=== PATIENT | female | born 1955 | race Caucasian/White ===

== ENCOUNTER 2024-03-06 08:04 | Inpatient (IN) | payer MEDICARE, OTHER ==
[~2024-03-06] VITALS: Ht 170.2 cm; Wt 70.2 kg
[2024-03-06] VITALS (7 sets, daily range): BP systolic 104–120; BP diastolic 54–72; PULSE 73–94; RESP 15–20; TEMP 97.8–98.3; O2SAT 90–94
--- NOTE | 2024-03-06 09:45 | ED.PDOC ---
SOB-HPI HPI Comments 69 y.o female with PMH of COPD and HTN, presents to the ED for a chief complaint of SOB associated with green/brown sputum, abdominal pain, nausea, vomiting, and diarrhea that started 1 week ago. Patient reports for the past 3 days she has been laying in bed, decreased fluid intake due to SOB and now feels dehydrated and weak. Patient has no oxygen at home, presents to the ED with SPO2 reading 77% on room air, was placed on 4LNC and saturation increased to 90%. Patient denies any other symptoms, pain, recent illness exposure or travel outside of the country. 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 Family History Family History: Reviewed,noncontributory to illness Social History Smoker: Non-Smoker Alcohol: Denies ETOH Use Drugs: Denies Drug Use Lives In: Home Constitutional: denies: chills, diaphoresis, fatigue, fever, malaise, sweats, weakness, others EENTM: denies: blurred vision, double vision, ear bleeding, ear discharge, ear drainage, ear pain, ear ringing, eye pain, eye redness, hearing loss, mouth pain, mouth swelling, nasal discharge, nose bleeding, nose congestion, nose pain, photophobia, tearing, throat pain, throat swelling, voice changes, others Respiratory: reports: SOB at rest, shortness of breath, SOB with excertion; denies: cough, hemoptysis, orthopnea, stridor, wheezing, others Cardiovascular: denies: chest pain, dizzy spells, diaphoresis, Dyspnea on exertion, edema, irregular heart beat, left arm pain, lightheadedness, palpitations, PND, syncope, others Gastrointestinal: reports: abdominal pain, nausea, vomiting; denies: abdomen distended, blood streaked bowels, constipated, diarrhea, dysphagia, difficulty swallowing, hematemesis, melena, poor appetite, poor fluid intake, rectal bleeding, rectal pain, others Genitourinary: denies: abnormal vagina bleeding, burning, dyspareunia, dysuria, flank pain, frequency, hematuria, incontinence, pain, , vagina discharge, urgency, others Neurological: denies: dizziness, fainting, headache, left sided numbness, left sided weakness, numbness, paresthesia, pre-existing deficit, right sided numbness, right sided weakness, seizure, speech problems, tingling, tremors, weakness, others Musculoskeletal: denies: back pain, gout, joint pain, joint swelling, muscle pain, muscle stiffness, neck pain, others Integumetry: denies: bruises, change in color, change in hair/nails, dryness, laceration, lesions, lumps, rash, wounds, others Allergic/Immunocompromised: denies: Difficulty Healing, Frequent Infections, Hives, Itching, others Hematologic/Lymphatic: denies: anemia, blood clots, easy bleeding, easy bruising, swollen glands, others Endocrine: denies: excessive hunger, excessive sweating, excessive thirst, excessive urination, flushing, intolerance to cold, intolerance to heat, unexplained weight gain, unexplained weight loss, others Psychiatric: denies: anxiety, bipolar disorder, depression, hopeless, panic disorder, schizophrenia, sleepless, suicidal, others All Other Systems: Reviewed and Negative Physical Exam General Appearance: No Apparent Distress, Normal HEENT: Normal ENT Inspection, Pharynx Normal, TMs Normal Neck: Full Range of Motion, Non-Tender, Normal, Normal Inspection Respiratory: Chest Non-Tender, Lungs Clear, No Accessory Muscle Use, No Respiratory Distress, Normal Breath Sounds Cardiovascular: No Edema, No JVD, No Murmur, No Gallop, Normal Peripheral Pulses, Regular Rate/Rhythm Breast Exam: Deferred Gastrointestinal: No Organomegaly, Non Tender, No Pulsatile Mass, Normal Bowel Sounds, Soft Genitalia: Deferred Pelvic: Deferred Rectal: Deferred Extremities: No calf tenderness, Normal capillary refill, Normal inspection, Normal range of motion, Non-tender, No pedal edema Musculoskeletal : Apperance: Normal Neurologic: Alert, power crane operator II-XII nml as Tested, No Motor Deficits, Normal Affect, Normal Mood, No Sensory Deficits Cerebellar Function: Normal Reflexes: Normal Skin: Dry, Normal Color, Warm Lymphatic: No Adenopathy Was a procedure done? Was a procedure done?: No Differential Dx Differential Diagnosis: Asthma, Bronchitis, CHF, COPD, Pneumonia, Respiratory Distress, URI X-Ray, Labs, Meds, VS Vital Signs Date Time Temp Pulse Resp B/P (MAP) Pulse Ox O2 Delivery O2 Flow Rate FiO2 03/06/24 11:11 97.8 74 16 90/54 (66) 91 97.8 03/06/24 11:11 74 16 91 Nasal Cannula* 4 36 03/06/24 08:50 98.0 86 24 117/67 (84) 77 03/06/24 08:49 24 96 Nasal Cannula* 4 36 Lab Test 03/06/24 12:00 03/06/24 10:20 Range/Units Troponin I High Sensitivity Pending 38 *H </=34 ng/L White Blood Count 17.3 H 4.4-10.8 10^3/uL Red Blood Count 4.97 4.0-5.20 10^6/uL Hemoglobin 15.2 12.2-16.2 g/dL Hematocrit 44.9 36.0-46.0 % Mean Corpuscular Volume 90.4 80.0-100.0 fL Mean Corpuscular Hemoglobin 30.7 28.0-32.0 pg Mean Corpuscular Hemoglobin Concent 33.9 32.0-36.0 g/dL Red Cell Distribution Width 12.7 11.8-14.3 % Platelet Count 259 140-450 10^3/uL Mean Platelet Volume 7.9 6.9-10.8 fL Neutrophils (%) (Auto) 90.4 H 37.0-80.0 % Lymphocytes (%) (Auto) 4.2 L 10.0-50.0 % Monocytes (%) (Auto) 5.3 0.0-12.0 % Eosinophils (%) (Auto) 0.0 0.0-7.0 % Basophils (%) (Auto) 0.1 0.0-2.0 % Neutrophils # (Auto) 15.7 H 1.6-8.6 10 ^3/uL Lymphocytes # (Auto) 0.7 0.4-5.4 10 ^3/uL Monocytes # (Auto) 0.9 0-1.3 10 ^3/uL Eosinophils # (Auto) 0 0-0.8 10 ^3/uL Basophils # (Auto) 0 0-0.2 10 ^3/uL Nucleated Red Blood Cells 0.1 % Prothrombin Time 11.6 9.3-11.8 sec Prothrombin Time INR 1.10 0.9-1.15 Activated Partial Thromboplast Time 31.3 24.5-34.5 SEC D-Dimer, Quantitative 1.29 H 0.0-0.49 mg/L FEU Sodium Level 137 136-145 mmol/L Potassium Level 2.8 L 3.5-5.1 mmol/L Chloride Level 97 L 98-107 mmol/L Carbon Dioxide Level 23 20-31 mmol/L Anion Gap 17 H 5-15 Blood Urea Nitrogen 20 9-23 mg/dL Creatinine 1.35 H 0.550-1.02 mg/dL Glomerular Filtration Rate Calc 43 >90 mL/min BUN/Creatinine Ratio 14.8 10.0-20.0 Serum Glucose 106 74-106 mg/dL Calcium Level 9.7 8.7-10.4 mg/dL Magnesium Level 2.1 1.6-2.6 mg/dL Total Bilirubin 1.1 H 0.2-1.0 mg/dL Aspartate Amino Transferase (AST) 38 13-40 U/L Alanine Aminotransferase (ALT) 16 7-40 U/L Alkaline Phosphatase 129 H 46-116 U/L B-Type Natriuretic Peptide 170.50 0-100 pg/mL Total Protein 7.3 5.7-8.2 g/dL Albumin 4.4 3.2-4.8 g/dL Current Medications Medications (Trade) Dose Ordered Sig/Liz Route Start Time Stop Time Status Last Admin Sodium Chloride 1,000 ml @ 1,000 mls/hr Q1H ONCE IV 03/06/24 09:30 03/06/24 10:29 DC 03/06/24 10:50 Ondansetron HCl (Zofran) 4 mg ONCE ONCE IV 03/06/24 09:30 03/06/24 09:32 DC 03/06/24 10:57 Time of 1ST Reevaluation: 09:30 Reevaluation 1ST: Unchanged Patient Education/Counseling: Diagnosis, Treatment, Prognosis Family Education/Counseling: No Family Present Additional Information The following tests were ordered, and results were reviewed by me: LAB, CXR, O2 I reviewed and agreed with the following test results read by other providers: CXR I discussed treatment and results with medical personnel and patient Departure 1 Departure Time of Disposition: 12:50 Impression: Primary Impression: Dyspnea Additional Impressions: Hypoxia Leukocytosis Hypokalemia Disposition: ADMITTED INPATIENT Admit to: Tele Condition: Guarded Critical Care Note Critical Care Time?: No Stability Stability form required: No I personally scribed for AUSTIN VICTOR MD ([email or web address]) on 03/06/24 at 09:45. Electronically submitted by Rachel Belle ([facility]). AUSTIN VICTOR MD Mar 06, 2024 09:45
[2024-03-06] MEDS: SODIUM CHLORIDE 0.9% 1,000 ML IV ONE (10:50)
[2024-03-06] MEDS: ONDANSETRON HCL 4 MG/2 ML VIAL IV ONE (10:57)
[2024-03-06 10:58] LABS: Basophils # (auto) 0 10 ^3/uL (0-0.2); Basophils % (auto) 0.1 % (0.0-2.0); Eosinophils # (auto) 0 10 ^3/uL (0-0.8); Hematocrit 44.9 % (36.0-46.0); Hemoglobin 15.2 g/dL (12.2-16.2); Lymphocytes # (auto) 0.7 10 ^3/uL (0.4-5.4); Lymphocytes % (auto) 4.2 % (10.0-50.0); Mean Corpuscular Hemoglobin 30.7 pg (28.0-32.0); Mean Corpuscular Hgb Conc. 33.9 g/dL (32.0-36.0); Mean Corpuscular Volume 90.4 fL (80.0-100.0); Monocytes # (auto) 0.9 10 ^3/uL (0-1.3); Monocytes % (auto) 5.3 % (0.0-12.0); Neutrophils # (auto) 15.7 10 ^3/uL (1.6-8.6); Neutrophils % (auto) 90.4 % (37.0-80.0); Nucleated Red Blood Cells % 0.1 %; Platelet Count (auto) 259 10^3/uL (140-450); Red Blood Cells 4.97 10^6/uL (4.0-5.20); Red Cell Distribution Width 12.7 % (11.8-14.3); White Blood Cell 17.3 10^3/uL (4.4-10.8)
[2024-03-06 11:13] LABS: Alanine Aminotransferase 16 U/L (7-40); Albumin 4.4 g/dL (3.2-4.8); Anion Gap 17 (5-15); Aspartate Aminotransferase 38 U/L (13-40); BUN/Creatinine Ratio 14.8 (10.0-20.0); Blood Urea Nitrogen 20 mg/dL (9-23); Calcium 9.7 mg/dL (8.7-10.4); Carbon Dioxide 23 mmol/L (20-31); Glucose 106 mg/dL (74-106); Magnesium 2.1 mg/dL (1.6-2.6); Sodium 137 mmol/L (136-145)
[2024-03-06 11:14] LABS: Bilirubin, Total 1.1 mg/dL (0.2-1.0); Total Protein 7.3 g/dL (5.7-8.2)
[2024-03-06 11:15] LABS: INR 1.1 (0.9-1.15); Partial Thromboplastin Time 31.3 SEC (24.5-34.5); Prothrombin Time 11.6 sec (9.3-11.8)
[2024-03-06 11:21] LABS: Alkaline Phosphatase 129 U/L (46-116); Chloride 97 mmol/L (98-107); Potassium 2.8 mmol/L (3.5-5.1)
[2024-03-06] MEDS ORDERED: POTASSIUM PHOSPHATE 44 MEQ in D5W 5% 250 ML IV ONE (13:00)
[2024-03-06] MEDS: POTASSIUM EFFERVESENT TAB 25 MEQ PO ONE (13:47)
--- NOTE | 2024-03-06 14:28 | ECG ---
[facility], [place] Test Date: 2024-03-06 Test Time: 08:40:45 Pat Name: IMTIAZ SALAZAR Department: ER Room: Gender: F Icer Hand: JOSE : 1955 Requested By: AUSTIN VICTOR Order Number: [id number] Reading MD: Mruphy Rodas Measurements Intervals Angie Rate: 77 P: 59 NC: 152 QRS: 5 QRSD: 99 T: 74 QT: 470 QTc: 533 Interpretive Statements Sinus rhythm Atrial premature complex Left atrial enlargement Anterolateral infarct, age indeterminate Prolonged QT interval Electronically Signed On 03-06-2024 15:45:12 PST by Murphy Rodas Please click the below link to view image of tracing.
[2024-03-06] MEDS ORDERED: IPRATROPIUM BROM 0.5 MG/2.5ML INH SOL NEB PRN (14:30)
[2024-03-06] MEDS ORDERED: ALBUTEROL SULF 2.5 MG/0.5ML(0.5%) NEB SOLN NEB PRN (14:30)
[2024-03-06] MEDS ORDERED: AMLO1TAB23 PO (14:43)
[2024-03-06] MEDS ORDERED: ATOR20TA50 PO (14:43)
[2024-03-06] MEDS ORDERED: TRAZ-228 PO (14:43)
[2024-03-06] MEDS ORDERED: ARIP1TAB63 PO (14:43)
[2024-03-06] MEDS ORDERED: LISI10TA34 PO (14:43)
[2024-03-06] MEDS ORDERED: METO1TAB9 PO (14:43)
[2024-03-06] MEDS ORDERED: VENL1TAB99 PO (14:43)
[2024-03-06] MEDS: IOHEXOL 350 MG/ML 100ML IJ ONE (14:46)
--- NOTE | 2024-03-06 15:07 | DVH ---
PROCEDURE: CT CT ANGIO CHEST CONTRAST 03/06/2024 02:35 PM INDICATION: r/o pe COMPARISON: Chest radiograph dated 03/06/2024 TECHNIQUE: Coverage: Thorax IV contrast: Administered Phases: Arterial Multiplanar 3-D Maximum Intensity Projection images (MIP) reconstructions were created by the technkhloe barrios in the coronal and sagittal planes as part of the CT angiography protocol. Adverse events: None Medication laboratory values were reviewed to verify the patient meets criteria for contrast administ ration. All CT scans at this medical facility are performed using dose modulation techniques as appropriate t o a performed exam including the following: Automated exposure control was utilized; adjustment of th e MA and/or KV according to patient size; and use of iterative reconstruction technique. Radiation dose: CTDIvol 29 mGy, DLP 487 mGy*cm. FINDINGS: Cardiovascular: No evidence of acute or chronic pulmonary emboli identified. Prominent pulmonary serafin ry suggestive of underlying pulmonary arterial hypertension. Fusiform aneurysm of the ascending aorta measuring 4 cm in mid ascending aorta. Scattered soft and calcified plaques noted. The heart is nor mal in size. Lungs: Multifocal patchy opacities are noted in the bilateral upper, lower and right middle lobes mor e prominent in the lower lobes. Numerous subcentimeter lucencies are seen in the bilateral lungs. No pleural effusion. No pneumothorax. The airways are patent. Thyroid: Unremarkable Esophagus: Unremarkable. Lymphatics: Several mediastinal lymph nodes are seen measuring up to 2.2 x 1 cm in the subcarinal reg ion. Mild bilateral hilar lymphadenopathy. Bones/soft tissues: No acute abnormality. Mild thoracic levoscoliosis and multilevel degenerative dis c disease. Upper abdomen: No acute abnormality. Other: None. IMPRESSION: 1. No pulmonary emboli. Suggestion of pulmonary arterial hypertension prominent and related to under lying COPD. 2. Bilateral multifocal pneumonia. 3. Mild fusiform aneurysm of the ascending aorta with maximum transverse diameter 4 cm. 4. Moderate centrilobular and paraseptal emphysema.
[2024-03-06] MEDS: SODIUM CHLORIDE 0.9% 1,000 ML IV SCH (15:08)
[2024-03-06] MEDS: cefTRIAXone 1GM/50ML D5W 50 ML IV ONE (15:38)
--- NOTE | 2024-03-06 15:52 | DVHHP2 ---
History of Present Illness Reason for Visit: Shortness of breath, nausea, vomiting, and abdominal pain x4 days History of Present Illness Griselda Steinberg is a 69-year-old female with past medical history of hypertension and COPD who presents to the ED today with shortness of breath with brown productive sputum, nausea, vomiting, abdominal pain x4 days. Patient states that her nieces are sick with a cold and got her ill. She states that when she was home her saturation was 84% on room air. She states that she does not use home oxygen. She does state that she is compliant with all her medications and she does use albuterol as needed for shortness of breath. Patient denies any fevers, chills, chest pain, back pain, headache, lightheadedness, and dizziness. Cardiovascular: HTN Pulmonary: COPD Past Medical History DJD Past Surgical History: Appendectomy, Past Surgical History Neck surgery with plate in place Family History: DM Family History Mom Smoke: No ALCOHOL: none Drugs: None Lives: with Family Domestic Violence: Neg Review of Systems Constitutional: No: Fever, Chills, Sweats, Weakness, Malaise, Other Eyes: No: Pain, Vision change, Conjunctivae inflammation, Eyelid inflammation, Other, Redness ENT: No: Ear pain, Ear discharge, Nose pain, Nose discharge, Nose congestion, Mouth pain, Mouth swelling, Throat pain, Throat swelling, Other Respiratory: Shortness of breath; No: Cough, Dry, SOB with excertion, Wheezing, Hemoptysis, Pleuritic Pain, Sputum, Wheezing, Other Cardiovascular: No: Chest Pain, Palpitations, Orthopnea, Paroxysmal Noc. Dyspnea, Edema, Lt Headedness, Other Gastrointestinal: Nausea, Vomiting, Abdominal Pain; No: Diarrhea, Constipation, Melena, Hematochezia, Other Genitourinary: No Dysuria, No Frequency, No Incontinence, No Hematuria, No Retention, No Other Musculoskeletal: No: other, neck pain, shoulder pain, arm pain, back pain, hand pain, leg pain, foot pain Skin: No: Rash, Lesions, Jaundice, Bruising, Other Neurological: No: Weakness, Numbness, Incoordination, Change in speech, Confusion, Seizures, Other Allergies: Coded Allergies: Codeine (Verified Allergy, Mild, 03/07/24) Medications Current Medications Medications Dose Ordered Sig/Liz Route Start Time Stop Time Status Last Admin Dose Admin Ceftriaxone Sodium 50 ml @ 100 mls/hr DAILY@09 IV 03/07/24 09:00 Albuterol 2.5 mg Q6HWA [facility] 03/06/24 18:00 Albuterol 2.5 mg Q4HPRN PRN [facility] 03/06/24 14:30 Ipratropium [place] 0.5 mg Q6HWA [facility] 03/06/24 18:00 Ipratropium [place] 0.5 mg Q4HPRN PRN [facility] 03/06/24 14:30 Sodium Chloride 1,000 ml @ 100 mls/hr Q10H IV 03/06/24 14:30 03/06/24 15:08 100 MLS/HR Budesonide 0.5 mg BID [facility] 03/06/24 22:00 Exam Vital Signs Vital Signs Date Time Temp Pulse Resp B/P (MAP) Pulse Ox O2 Delivery O2 Flow Rate FiO2 03/06/24 15:19 97.8 86 20 109/54 92 6.0 44 97.8 03/06/24 14:27 Nasal Cannula General Appearance: Alert, Oriented X3, Cooperative, No acute distress HEENT: Atraumatic, PERRLA, EOMI, Mucous membr. moist/pink Respiratory: Normal air movement Cardiovascular: Regular rate, Normal S1, Normal S2, No murmurs Abdominal: Normal bowel sounds, Soft, No tenderness, No hepatospenomegaly, No masses Extremities: No clubbing, No cyanosis, No edema, Normal pulses, No tenderness/swelling Skin: No rashes, No breakdown, No significant lesion Neuro: Normal gait, Normal speech, Strength at 5/5 X4 ext, Normal tone, Sensation intact Psych/Mental Status: Mental status NL, Mood NL Labs/Xrays Labs Test 03/06/24 13:59 03/06/24 10:20 Range/Units Troponin I High Sensitivity 32 </=34 ng/L White Blood Count 17.3 H 4.4-10.8 10^3/uL Red Blood Count 4.97 4.0-5.20 10^6/uL Hemoglobin 15.2 12.2-16.2 g/dL Hematocrit 44.9 36.0-46.0 % Mean Corpuscular Volume 90.4 80.0-100.0 fL Mean Corpuscular Hemoglobin 30.7 28.0-32.0 pg Mean Corpuscular Hemoglobin Concent 33.9 32.0-36.0 g/dL Red Cell Distribution Width 12.7 11.8-14.3 % Platelet Count 259 140-450 10^3/uL Mean Platelet Volume 7.9 6.9-10.8 fL Neutrophils (%) (Auto) 90.4 H 37.0-80.0 % Lymphocytes (%) (Auto) 4.2 L 10.0-50.0 % Monocytes (%) (Auto) 5.3 0.0-12.0 % Eosinophils (%) (Auto) 0.0 0.0-7.0 % Basophils (%) (Auto) 0.1 0.0-2.0 % Neutrophils # (Auto) 15.7 H 1.6-8.6 10 ^3/uL Lymphocytes # (Auto) 0.7 0.4-5.4 10 ^3/uL Monocytes # (Auto) 0.9 0-1.3 10 ^3/uL Eosinophils # (Auto) 0 0-0.8 10 ^3/uL Basophils # (Auto) 0 0-0.2 10 ^3/uL Nucleated Red Blood Cells 0.1 % Prothrombin Time 11.6 9.3-11.8 sec Prothrombin Time INR 1.10 0.9-1.15 Activated Partial Thromboplast Time 31.3 24.5-34.5 SEC D-Dimer, Quantitative 1.29 H 0.0-0.49 mg/L FEU Sodium Level 137 136-145 mmol/L Potassium Level 2.8 L 3.5-5.1 mmol/L Chloride Level 97 L 98-107 mmol/L Carbon Dioxide Level 23 20-31 mmol/L Anion Gap 17 H 5-15 Blood Urea Nitrogen 20 9-23 mg/dL Creatinine 1.35 H 0.550-1.02 mg/dL Glomerular Filtration Rate Calc 43 >90 mL/min BUN/Creatinine Ratio 14.8 10.0-20.0 Serum Glucose 106 74-106 mg/dL Calcium Level 9.7 8.7-10.4 mg/dL Magnesium Level 2.1 1.6-2.6 mg/dL Total Bilirubin 1.1 H 0.2-1.0 mg/dL Aspartate Amino Transferase (AST) 38 13-40 U/L Alanine Aminotransferase (ALT) 16 7-40 U/L Alkaline Phosphatase 129 H 46-116 U/L B-Type Natriuretic Peptide 170.50 0-100 pg/mL Total Protein 7.3 5.7-8.2 g/dL Albumin 4.4 3.2-4.8 g/dL PROCEDURE: CT CT ANGIO CHEST CONTRAST 03/06/2024 02:35 PM INDICATION: r/o pe COMPARISON: Chest radiograph dated 03/06/2024 TECHNIQUE: Coverage: Thorax IV contrast: Administered Phases: Arterial Multiplanar 3-D Maximum Intensity Projection images (MIP) reconstructions were created by the technologist in the coronal and sagittal planes as part of the CT angiography protocol. Adverse events: None Medication laboratory values were reviewed to verify the patient meets criteria for contrast administration. All CT scans at this medical facility are performed using dose modulation techniques as appropriate to a performed exam including the following: Automated exposure control was utilized; adjustment of the MA and/or KV according to patient size; and use of iterative reconstruction technique. Radiation dose: CTDIvol 29 mGy, DLP 487 mGy*cm. FINDINGS: Cardiovascular: No evidence of acute or chronic pulmonary emboli identified. Prominent pulmonary artery suggestive of underlying pulmonary arterial hypertension. Fusiform aneurysm of the ascending aorta measuring 4 cm in mid ascending aorta. Scattered soft and calcified plaques noted. The heart is normal in size. Lungs: Multifocal patchy opacities are noted in the bilateral upper, lower and right middle lobes more prominent in the lower lobes. Numerous subcentimeter mary encies are seen in the bilateral lungs. No pleural effusion. No pneumothorax. The airways are patent. Thyroid: Unremarkable Esophagus: Unremarkable. Lymphatics: Several mediastinal lymph nodes are seen measuring up to 2.2 x 1 cm in the subcarinal region. Mild bilateral hilar lymphadenopathy. Bones/soft tissues: No acute abnormality. Mild thoracic levoscoliosis and multilevel degenerative disc disease. Upper abdomen: No acute abnormality. Other: None. IMPRESSION: 1. No pulmonary emboli. Suggestion of pulmonary arterial hypertension prominent and related to underlying COPD. 2. Bilateral multifocal pneumonia. 3. Mild fusiform aneurysm of the ascending aorta with maximum transverse diameter 4 cm. 4. Moderate centrilobular and paraseptal emphysema. Assessment/Plan Assessment/Plan Assessment/Plan: Leukocytosis likely 2nd to PNA Acute on chronic COPD exacerbation likely 2nd to PNA MAYANK IV Abx labs ekg ua supp O2 cxr noted trop downtrending Elevated D-dimer Antiemetics Pain management IV fluids given in ER mag pt/ptt bnp cta chest noted Hypokalemia replete lytes Mild fusiform aneurysm of the ascending aorta with maximum transverse diameter 4 cm. Monitor FEN/PPX diet IVf DVT ppx - lovenox PUD ppx - protonix Admit patient to Med surg Discussed plan of care with patient and nurse Home medications reconciled Plan discussed with: Patient My Orders Orders - USMAN KAM Procedure Category Date Status Time Ct Angio Chest CT 03/06/24 Resulted Contrast 14:19 Ceftriaxone 1gm/50ml PHA 03/07/24 In Process D5w (Rocephin) 09:00 Albuterol Medneb PHA 03/06/24 In Process (Ventolin Medneb) 18:00 Albuterol Medneb PHA 03/06/24 In Process (Ventolin Medneb) 14:30 Ipratropium Medneb PHA 03/06/24 In Process (Atrovent Medneb) 18:00 Ipratropium Medneb PHA 03/06/24 In Process (Atrovent Medneb) 14:30 Sodium Chloride 0.9% PHA 03/06/24 In Process 14:30 Budesonide PHA 03/06/24 In Process (Inhalation) 22:00 Date of Service: Mar 06, 2024 Billing Provider: USMAN KAM Common Visit Codes: [id number] INP/OBS CARE (HIGH) USMAN KAM Mar 06, 2024 15:52
[2024-03-06] MEDS ORDERED: HYDROcodone-ACET 5/325MG TAB PO PRN (16:00)
[2024-03-06] MEDS ORDERED: MORPHINE SULFATE INJ 2 MG/ml SYRG IV PRN (16:00)
[2024-03-06] MEDS ORDERED: ONDANSETRON HCL 4 MG/2 ML VIAL IV PRN (16:00)
[2024-03-06] MEDS: POTASSIUM PHOSPHATE IV ONE (16:18)
[2024-03-06] MEDS: SODIUM CHL 0.9% IV ONE (16:18)
[2024-03-06] MEDS: IPRATROPIUM BROM 0.5 MG/2.5ML INH SOL NEB SCH (19:05)
[2024-03-06] MEDS: ALBUTEROL SULF 2.5 MG/0.5ML(0.5%) NEB SOLN NEB SCH (19:05)
[2024-03-06] MEDS: BUDESONIDE (INHALATION) 0.5 MG/2 ML NEB NEB SCH (19:05)
[2024-03-06] MEDS ORDERED: FLUT1AER17 INH (20:40)
[2024-03-07] VITALS (14 sets, daily range): BP systolic 102–138; BP diastolic 59–85; PULSE 80–111; RESP 14–19; TEMP 97.7–98.2; O2SAT 88–98
[2024-03-07 05:21] LABS: Basophils # (auto) 0 10 ^3/uL (0-0.2); Basophils % (auto) 0.2 % (0.0-2.0); Eosinophils # (auto) 0 10 ^3/uL (0-0.8); Hematocrit 36.8 % (36.0-46.0); Hemoglobin 12.6 g/dL (12.2-16.2); Lymphocytes # (auto) 0.8 10 ^3/uL (0.4-5.4); Lymphocytes % (auto) 7.6 % (10.0-50.0); Mean Corpuscular Hemoglobin 30.2 pg (28.0-32.0); Mean Corpuscular Hgb Conc. 34.4 g/dL (32.0-36.0); Mean Corpuscular Volume 87.9 fL (80.0-100.0); Monocytes # (auto) 0.5 10 ^3/uL (0-1.3); Monocytes % (auto) 5.3 % (0.0-12.0); Neutrophils # (auto) 8.8 10 ^3/uL (1.6-8.6); Neutrophils % (auto) 86.9 % (37.0-80.0); Nucleated Red Blood Cells % 0.1 %; Platelet Count (auto) 201 10^3/uL (140-450); Red Blood Cells 4.18 10^6/uL (4.0-5.20); Red Cell Distribution Width 12.8 % (11.8-14.3); White Blood Cell 10.1 10^3/uL (4.4-10.8)
[2024-03-07 05:40] LABS: Alanine Aminotransferase 14 U/L (7-40); Albumin 3.7 g/dL (3.2-4.8); Alkaline Phosphatase 105 U/L (46-116); Anion Gap 9 (5-15); BUN/Creatinine Ratio 22.8 (10.0-20.0); Blood Urea Nitrogen 18 mg/dL (9-23); Carbon Dioxide 30 mmol/L (20-31); Chloride 101 mmol/L (98-107); Sodium 140 mmol/L (136-145)
[2024-03-07 05:41] LABS: Bilirubin, Total 0.6 mg/dL (0.2-1.0); Total Protein 5.9 g/dL (5.7-8.2)
[2024-03-07 06:02] LABS: Glucose 108 mg/dL (74-106); Potassium 2.7 mmol/L (3.5-5.1)
[2024-03-07 06:07] LABS: Aspartate Aminotransferase 27 U/L (13-40)
[2024-03-07] MEDS: SODIUM CHLORIDE 0.9% 1,000 ML IV SCH (06:09)
[2024-03-07] MEDS: ACETAMINOPHEN 325 MG TAB PO PRN (06:26)
[2024-03-07] MEDS: cefTRIAXone 1GM/50ML D5W 50 ML IV SCH (08:37)
[2024-03-07] MEDS: ENOXAPARIN SOD 40 MG/0.4 ML SYRINGE SC SCH (08:38)
--- NOTE | 2024-03-07 09:56 | DVH ---
CHEST RADIOGRAPH Indication: pna Technique: Single frontal view of the chest was obtained Comparison: XY CHEST PORTABLE on DOS: 03/06/24 FINDINGS: Lines and Tubes: None Lungs: Bilateral opacities. Pleura: No effusion. No pneumothorax. Cardiomediastinal contours: Unremarkable Bones: No acute osseous abnormality. ACDF. IMPRESSION: 1. Bilateral opacities which may represent multifocal pneumonia.
--- NOTE | 2024-03-07 11:38 | DVHPN2 ---
Reviewed: Care Plan, H&P, Labs, Medications, Previous Orders, Radiology Changes from previous H/P or p: No Changes Eyes: No Pain, No Vision change, No Conjunctivae inflammation, No Eyelid inflammation, No Other, No Redness ENT: No Ear pain, No Ear discharge, No Nose pain, No Nose discharge, No Nose congestion, No Mouth pain, No Mouth swelling, No Throat pain, No Throat swelling, No Other Cardiovascular: No Chest Pain, No Palpitations, No Orthopnea, No Paroxysmal Noc. Dyspnea, No Edema, No Lt Headedness, No Other Respiratory: No Cough, No Dry; Shortness of breath; No SOB with excertion, No Wheezing, No Hemoptysis, No Pleuritic Pain, No Sputum, No Other Gastrointestinal: Nausea, Vomiting, Abdominal Pain; No Diarrhea, No Constipation, No Melena, No Hematochezia, No Other Genitourinary: No Dysuria, No Frequency, No Incontinence, No Hematuria, No Retention, No Other Musculoskeletal: No other, No neck pain, No shoulder pain, No arm pain, No back pain, No hand pain, No leg pain, No foot pain Skin: No Rash, No Lesions, No Jaundice, No Bruising, No Other Objective Vitals Vital Signs Date Time Temp Pulse Resp B/P (MAP) Pulse Ox O2 Delivery O2 Flow Rate FiO2 03/07/24 11:25 80 14 98 03/07/24 11:18 Nasal Cannula 4.0 03/07/24 11:18 36 03/07/24 08:30 98.1 128/64 (85) 98.1 Intake/Output Intake and Output 03/07/24 07:00 Intake Total 450 ml Balance 450 ml Intake Oral 400 ml IV Total 50 ml # Voids 2 Medications Current Medications Medications Dose Ordered Sig/Liz Route Start Time Stop Time Status Last Admin Dose Admin Ceftriaxone Sodium 50 ml @ 100 mls/hr DAILY@09 IV 03/07/24 09:00 03/07/24 08:37 100 MLS/HR Albuterol 2.5 mg Q6HWA [facility] 03/06/24 18:00 03/07/24 11:18 2.5 MG Albuterol 2.5 mg Q4HPRN PRN [facility] 03/06/24 14:30 Ipratropium [place] 0.5 mg Q6HWA [facility] 03/06/24 18:00 03/07/24 11:18 0.5 MG Ipratropium [place] 0.5 mg Q4HPRN PRN NEB 03/06/24 14:30 Budesonide 0.5 mg BID NEB 03/06/24 22:00 03/07/24 06:36 0.5 MG Sodium Chloride 1,000 ml @ 70 mls/hr [id number] IV 03/06/24 16:00 03/07/24 06:09 70 MLS/HR Acetaminophen/ Hydrocodone Bitart 1 tab Q4HP PRN PO 03/06/24 16:00 Ondansetron HCl 4 mg Q4HP PRN IV 03/06/24 16:00 Enoxaparin Sodium 40 mg DAILY SC 03/07/24 10:00 03/07/24 08:38 40 MG Acetaminophen 650 mg Q6HP PRN PO 03/06/24 16:00 03/07/24 06:26 650 MG Morphine Sulfate 2 mg Q4HPRN PRN IV 03/06/24 16:00 Laboratory Results Laboratory Tests 03/07/24 05:02 Chemistry Test 03/07/24 05:02 Albumin 3.7 g/dL (3.2-4.8) Calcium Level 9.0 mg/dL (8.7-10.4) Total Protein 5.9 g/dL (5.7-8.2) LFT Test 03/07/24 05:02 Alanine Aminotransferase (ALT) 14 U/L (7-40) Alkaline Phosphatase 105 U/L (46-116) Aspartate Amino Transferase (AST) 27 U/L (13-40) Total Bilirubin 0.6 mg/dL (0.2-1.0) Labs and/or images reviewed: Labs reviewed by me, Image(s) reviewed by me Assessment/Plan Assessment/Plan Hypoxic respiratory failure: Oxygen by nasal cannula Septic shock secondary to pneumonia with the elevated white count altered mental status and hypoxia Acute community-acquired multifocal pneumonia: Blood cultures sputum cultures, Rocephin azithromycin albuterol Atrovent Solu-Medrol Acute COPD exacerbation Hypertension DJD History of neck surgery Elevated D-dimer 1.29 PE ruled out Will check Tammy test, rapid influenza test Acute hypokalemia potassium 2.8: Replace potassium Time spent 65 minutes Patient is full code Poor prognosis Advanced care planning time 20 minutes Patient is from [facility] and visiting her daughter Linette [phone] in the [facility] who is at the bedside now. Plan discussed with: Patient My Orders Orders - NOEMI RILEY MD Procedure Category Date Status Time Urinalysis LAB 03/07/24 Logged 11:33 Urine Bacterial BROCK 03/07/24 Logged Culture 11:33 Blood Culture BROCK 03/07/24 Logged 11:33 Rapid Influenza A&B LAB 03/07/24 Logged 11:34 Covid19 Antigen [place] LAB 03/07/24 Logged Date of Service: Mar 07, 2024 Billing Provider: NOEMI RILEY MD Common Visit Codes: [id number] CARE 30-74 MIN NOEMI RILEY MD Mar 07, 2024 11:38
[2024-03-07] MEDS: POTASSIUM CHL 20 Meq TABLET PO ONE (11:58)
[2024-03-07] MEDS: AZITHROMYCIN 500MG/ 250ML 250 ML IV ONE (11:58)
[2024-03-07] MEDS: AZITHROMYCIN 250 MG TAB PO ONE (13:59)
--- NOTE | 2024-03-07 14:13 | MEDREC ---
[facility] ASP Intervention Section I [facility] ASP Intervention: Review courses of therapy (PLEASE CONSIDER SWITCHING AZITHROMYCIN TO DOXYCYCLINE DUE TO QTc > 500 ) NAMRATA BLANCAS Mar 07, 2024 14:13
[2024-03-07 15:06] LABS: COVID19 ANTIGEN SOFIA FIA NEGATIVE (NEGATIVE)
[2024-03-07 15:07] LABS: Rapid Influenza A Negative (Negative); Rapid Influenza B Negative (Negative)
[2024-03-07] MEDS: VENLAFAXINE HCL 37.5MG TABLET PO SCH (22:16)
[2024-03-07] MEDS: POTASSIUM CHL 20 Meq TABLET PO SCH (22:17)
[2024-03-08] VITALS (15 sets, daily range): BP systolic 129–156; BP diastolic 59–78; PULSE 65–99; RESP 1–20; TEMP 98–99.6; O2SAT 65–98
[2024-03-08 03:13] LABS: Urine Bacteria None Seen /hpf (None Seen)
[2024-03-08 04:37] LABS: Urine Blood Negative /uL (Negative); Urine Budding Yeast OCCASIONAL /hpf (None Seen); Urine Clarity Clear (Clear); Urine Color Light-Yellow (Yellow); Urine Protein, UAD TRACE (Negative); Urine Specific Gravity 1.012 (1.001-1.035); Urine Squamous Epithelial Cell FEW /hpf (<5); Urine Urobilinogen Normal (Negative); Urine WBC 3 /hpf (0 - 5)
[2024-03-08] MEDS: AZITHROMYCIN 250 MG TAB PO SCH (08:37)
[2024-03-08] MEDS ORDERED: AZITHROMYCIN 500MG/ 250ML 250 ML IV SCH (10:00)
--- NOTE | 2024-03-08 11:42 | DVHPN2 ---
Reviewed: Care Plan, H&P, Labs, Medications, Previous Orders, Radiology Changes from previous H/P or p: No Changes Eyes: No Pain, No Vision change, No Conjunctivae inflammation, No Eyelid inflammation, No Other, No Redness ENT: No Ear pain, No Ear discharge, No Nose pain, No Nose discharge, No Nose congestion, No Mouth pain, No Mouth swelling, No Throat pain, No Throat swelling, No Other Cardiovascular: No Chest Pain, No Palpitations, No Orthopnea, No Paroxysmal Noc. Dyspnea, No Edema, No Lt Headedness, No Other Respiratory: No Cough, No Dry; Shortness of breath; No SOB with excertion, No Wheezing, No Hemoptysis, No Pleuritic Pain, No Sputum, No Other Gastrointestinal: Nausea, Vomiting, Abdominal Pain; No Diarrhea, No Constipation, No Melena, No Hematochezia, No Other Genitourinary: No Dysuria, No Frequency, No Incontinence, No Hematuria, No Retention, No Other Musculoskeletal: No other, No neck pain, No shoulder pain, No arm pain, No back pain, No hand pain, No leg pain, No foot pain Skin: No Rash, No Lesions, No Jaundice, No Bruising, No Other Objective Vitals Vital Signs Date Time Temp Pulse Resp B/P (MAP) Pulse Ox O2 Delivery O2 Flow Rate FiO2 03/08/24 10:00 94 Nasal Cannula* 4 36 03/08/24 09:00 98.2 68 20 134/67 (89) 98.2 Intake/Output Intake and Output 03/08/24 07:00 Intake Total 2570 ml Balance 2570 ml Intake Oral 1100 ml IV Total 1470 ml # Voids 4 # Bowel Movements 2 Medications Current Medications Medications Dose Ordered Sig/Liz Route Start Time Stop Time Status Last Admin Dose Admin Ceftriaxone Sodium 50 ml @ 100 mls/hr DAILY@09 IV 03/07/24 09:00 03/08/24 08:36 100 MLS/HR Albuterol 2.5 mg Q6HWA [facility] 03/06/24 18:00 03/08/24 06:33 2.5 MG Albuterol 2.5 mg Q4HPRN PRN [facility] 03/06/24 14:30 Ipratropium [place] 0.5 mg Q6HWA [facility] 03/06/24 18:00 03/08/24 06:33 0.5 MG Ipratropium [place] 0.5 mg Q4HPRN PRN NEB 03/06/24 14:30 Budesonide 0.5 mg BID NEB 03/06/24 22:00 03/08/24 06:33 0.5 MG Sodium Chloride 1,000 ml @ 70 mls/hr [id number] IV 03/06/24 16:00 03/08/24 08:40 70 MLS/HR Acetaminophen/ Hydrocodone Bitart 1 tab Q4HP PRN PO 03/06/24 16:00 Ondansetron HCl 4 mg Q4HP PRN IV 03/06/24 16:00 Enoxaparin Sodium 40 mg DAILY SC 03/07/24 10:00 03/08/24 08:36 40 MG Acetaminophen 650 mg Q6HP PRN PO 03/06/24 16:00 03/07/24 06:26 650 MG Morphine Sulfate 2 mg Q4HPRN PRN IV 03/06/24 16:00 Potassium Chloride 40 meq BID PO 03/07/24 22:00 03/08/24 08:37 40 MEQ Venlafaxine HCl 75 mg BID PO 03/07/24 22:00 03/08/24 08:38 75 MG Azithromycin 500 mg DAILY PO 03/08/24 10:00 03/08/24 08:37 500 MG Laboratory Results Laboratory Tests 03/07/24 05:02 Urinalysis Test 03/08/24 02:30 Urine Color Light-yellow (Yellow) Urine Clarity Clear (Clear) Urine pH 6.0 (5.0-9.0) Urine Specific [place] 1.012 (1.001-1.035) Urine Protein Trace (Negative) H Urine Ketones 2+ (Negative) H Urine Blood Negative /uL (Negative) Urine Nitrite Negative (Negative) Urine Bilirubin Negative (Negative) Urine Urobilinogen Normal mg/dL (Negative) Urine Leukocyte Esterase Negative /uL (Negative) Urine RBC 1 /hpf (0 - 4) Urine WBC 3 /hpf (0 - 5) Urine Squamous Epithelial Cells Few /hpf (<5) Urine Bacteria None seen /hpf (None Seen) Urine Yeast (Budding) Occasional /hpf (None Urine Glucose Normal mg/dL (Normal) Labs and/or images reviewed: Labs reviewed by me, Image(s) reviewed by me Assessment/Plan Assessment/Plan Acute Hypoxic respiratory failure: Oxygen by nasal cannula 4 liters/minute Septic shock secondary to pneumonia with the elevated white count altered mental status and hypoxia Acute community-acquired multifocal pneumonia: Blood cultures sputum cultures, Rocephin doxycycline albuterol Atrovent Solu-Medrol Acute COPD exacerbation Hypertension DJD History of neck surgery Elevated D-dimer 1.29 PE ruled out Will check Tammy test, rapid influenza test Acute hypokalemia potassium 2.8: Replace potassium Time spent 65 minutes Patient is full code Poor prognosis Advanced care planning time 20 minutes Patient is from [facility] and visiting her daughter Linette [phone] in the [facility] who is at the bedside now. Plan discussed with: Patient My Orders Orders - NOEMI RILEY MD Procedure Category Date Status Time Potassium Er Tablet PHA 03/07/24 In Process (Klor-Con Tablet) 22:00 Venlafaxine PHA 03/07/24 In Process Hydrochloride 22:00 Azithromycin Tablet PHA 03/08/24 In Process (Zithromax Tablet) 10:00 Doxycycline PHA 03/08/24 Transmitted 100mg/250ml 11:45 Date of Service: Mar 08, 2024 Billing Provider: NOEMI RILEY MD Common Visit Codes: [id number] INP/OBS CARE([facility]) NOEMI RILEY MD Mar 08, 2024 11:42
[2024-03-09] VITALS (17 sets, daily range): BP systolic 124–156; BP diastolic 74–104; PULSE 91–115; RESP 15–20; TEMP 97.9–99.3; O2SAT 92–100
[2024-03-09] MEDS: DOXYCYCLINE 100MG/250ML 250 ML IV SCH (09:44)
--- NOTE | 2024-03-09 11:26 | DVHPN2 ---
Reviewed: Care Plan, H&P, Labs, Medications, Previous Orders, Radiology Changes from previous H/P or p: No Changes Eyes: No Pain, No Vision change, No Conjunctivae inflammation, No Eyelid inflammation, No Other, No Redness ENT: No Ear pain, No Ear discharge, No Nose pain, No Nose discharge, No Nose congestion, No Mouth pain, No Mouth swelling, No Throat pain, No Throat swelling, No Other Cardiovascular: No Chest Pain, No Palpitations, No Orthopnea, No Paroxysmal Noc. Dyspnea, No Edema, No Lt Headedness, No Other Respiratory: No Cough, No Dry; Shortness of breath; No SOB with excertion, No Wheezing, No Hemoptysis, No Pleuritic Pain, No Sputum, No Other Gastrointestinal: Nausea, Vomiting, Abdominal Pain; No Diarrhea, No Constipation, No Melena, No Hematochezia, No Other Genitourinary: No Dysuria, No Frequency, No Incontinence, No Hematuria, No Retention, No Other Musculoskeletal: No other, No neck pain, No shoulder pain, No arm pain, No back pain, No hand pain, No leg pain, No foot pain Skin: No Rash, No Lesions, No Jaundice, No Bruising, No Other Objective Vitals Vital Signs Date Time Temp Pulse Resp B/P (MAP) Pulse Ox O2 Delivery O2 Flow Rate FiO2 03/09/24 10:00 92 Nasal Cannula 4.0 03/09/24 10:00 36 03/09/24 09:01 97.9 110 20 147/78 (101) 97.9 Intake/Output Intake and Output 03/09/24 07:00 Intake Total 2350 ml Balance 2350 ml Intake Oral 2300 ml IV Total 50 ml # Voids 8 # Bowel Movements 2 Medications Current Medications Medications Dose Ordered Sig/Liz Route Start Time Stop Time Status Last Admin Dose Admin Ceftriaxone Sodium 50 ml @ 100 mls/hr DAILY@09 IV 03/07/24 09:00 03/09/24 09:44 100 MLS/HR Albuterol 2.5 mg Q6HWA [facility] 03/06/24 18:00 03/09/24 07:57 2.5 MG Albuterol 2.5 mg Q4HPRN PRN [facility] 03/06/24 14:30 Ipratropium [place] 0.5 mg Q6HWA [facility] 03/06/24 18:00 03/09/24 07:57 0.5 MG Ipratropium [place] 0.5 mg Q4HPRN PRN NEB 03/06/24 14:30 Budesonide 0.5 mg BID NEB 03/06/24 22:00 03/09/24 07:58 0.5 MG Sodium Chloride 1,000 ml @ 70 mls/hr [id number] IV 03/06/24 16:00 03/08/24 08:40 70 MLS/HR Acetaminophen/ Hydrocodone Bitart 1 tab Q4HP PRN PO 03/06/24 16:00 Ondansetron HCl 4 mg Q4HP PRN IV 03/06/24 16:00 Enoxaparin Sodium 40 mg DAILY SC 03/07/24 10:00 03/09/24 09:46 40 MG Acetaminophen 650 mg Q6HP PRN PO 03/06/24 16:00 03/07/24 06:26 650 MG Morphine Sulfate 2 mg Q4HPRN PRN IV 03/06/24 16:00 Potassium Chloride 40 meq BID PO 03/07/24 22:00 03/09/24 09:45 40 MEQ Venlafaxine HCl 75 mg BID PO 03/07/24 22:00 03/09/24 09:44 75 MG Doxycycline Hyclate 250 ml @ 125 mls/hr Q12H IV 03/09/24 10:00 03/09/24 10:40 125 MLS/HR Laboratory Results Laboratory Tests 03/07/24 05:02 Urinalysis Test 03/08/24 02:30 Urine Color Light-yellow (Yellow) Urine Clarity Clear (Clear) Urine pH 6.0 (5.0-9.0) Urine Specific [place] 1.012 (1.001-1.035) Urine Protein Trace (Negative) H Urine Ketones 2+ (Negative) H Urine Blood Negative /uL (Negative) Urine Nitrite Negative (Negative) Urine Bilirubin Negative (Negative) Urine Urobilinogen Normal mg/dL (Negative) Urine Leukocyte Esterase Negative /uL (Negative) Urine RBC 1 /hpf (0 - 4) Urine WBC 3 /hpf (0 - 5) Urine Squamous Epithelial Cells Few /hpf (<5) Urine Bacteria None seen /hpf (None Seen) Urine Yeast (Budding) Occasional /hpf (None Urine Glucose Normal mg/dL (Normal) Microbiology Microbiology Date/Time Source Procedure Growth Status 03/08/24 02:30 Voided Urine Urine Culture - Preliminary Resulted 03/07/24 14:00 Blood Blood Culture - Preliminary NO GROWTH AFTER 24 HOURS OF INCUBATION. Resulted Labs and/or images reviewed: Labs reviewed by me, Image(s) reviewed by me Assessment/Plan Assessment/Plan Acute Hypoxic respiratory failure: Oxygen by nasal cannula 4 liters/minute Septic shock secondary to pneumonia with the elevated white count altered mental status and hypoxia Acute community-acquired multifocal pneumonia: Blood cultures sputum cultures, Rocephin doxycycline albuterol Atrovent Solu-Medrol Acute COPD exacerbation Hypertension DJD History of neck surgery Elevated D-dimer 1.29 PE ruled out Tammy test negative Flu test negative Acute hypokalemia potassium 2.8: Replace potassium Time spent 55 minutes Patient is full code Poor prognosis Check ABG on room air Patient is from [facility] and visiting her daughter Linette [phone] in the [facility] who is at the bedside now. Plan discussed with: Patient My Orders Orders - NOEMI RILEY MD Procedure Category Date Status Time Doxycycline PHA 03/09/24 In Process 100mg/250ml 10:00 Date of Service: Mar 09, 2024 Billing Provider: NOEMI RILEY MD Common Visit Codes: [id number] INP/OBS CARE([facility]) NOEMI RILEY MD Mar 09, 2024 11:26
[2024-03-09 13:53] LABS: Base Excess 1.8 mmol/L (-2.0-3.0)
[2024-03-10] VITALS (11 sets, daily range): BP systolic 146–159; BP diastolic 68–78; PULSE 88–101; RESP 16–20; TEMP 97.9–98.8; O2SAT 93–99
--- NOTE | 2024-03-10 10:44 | DVHPN2 ---
Reviewed: Care Plan, H&P, Labs, Medications, Previous Orders, Radiology Changes from previous H/P or p: No Changes Eyes: No Pain, No Vision change, No Conjunctivae inflammation, No Eyelid inflammation, No Other, No Redness ENT: No Ear pain, No Ear discharge, No Nose pain, No Nose discharge, No Nose congestion, No Mouth pain, No Mouth swelling, No Throat pain, No Throat swelling, No Other Cardiovascular: No Chest Pain, No Palpitations, No Orthopnea, No Paroxysmal Noc. Dyspnea, No Edema, No Lt Headedness, No Other Respiratory: No Cough, No Dry; Shortness of breath; No SOB with excertion, No Wheezing, No Hemoptysis, No Pleuritic Pain, No Sputum, No Other Gastrointestinal: Nausea, Vomiting, Abdominal Pain; No Diarrhea, No Constipation, No Melena, No Hematochezia, No Other Genitourinary: No Dysuria, No Frequency, No Incontinence, No Hematuria, No Retention, No Other Musculoskeletal: No other, No neck pain, No shoulder pain, No arm pain, No back pain, No hand pain, No leg pain, No foot pain Skin: No Rash, No Lesions, No Jaundice, No Bruising, No Other Objective Vitals Vital Signs Date Time Temp Pulse Resp B/P (MAP) Pulse Ox O2 Delivery O2 Flow Rate FiO2 03/10/24 09:00 98.2 98 20 146/78 (100) 93 98.2 03/10/24 06:31 Nasal Cannula 4.0 03/10/24 06:31 36 Intake/Output Intake and Output 03/10/24 07:00 Intake Total 3400 ml Balance 3400 ml Intake Oral 2010 ml IV Total 1390 ml # Voids 6 # Bowel Movements 4 Medications Current Medications Medications Dose Ordered Sig/Liz Route Start Time Stop Time Status Last Admin Dose Admin Ceftriaxone Sodium 50 ml @ 100 mls/hr DAILY@09 IV 03/07/24 09:00 03/09/24 09:44 100 MLS/HR Albuterol 2.5 mg Q6HWA [facility] 03/06/24 18:00 03/10/24 06:31 2.5 MG Albuterol 2.5 mg Q4HPRN PRN [facility] 03/06/24 14:30 Ipratropium [place] 0.5 mg Q6HWA [facility] 03/06/24 18:00 03/10/24 06:31 0.5 MG Ipratropium [place] 0.5 mg Q4HPRN PRN NEB 03/06/24 14:30 Budesonide 0.5 mg BID NEB 03/06/24 22:00 03/10/24 06:34 0.5 MG Sodium Chloride 1,000 ml @ 70 mls/hr [id number] IV 03/06/24 16:00 03/10/24 05:56 70 MLS/HR Acetaminophen/ Hydrocodone Bitart 1 tab Q4HP PRN PO 03/06/24 16:00 Ondansetron HCl 4 mg Q4HP PRN IV 03/06/24 16:00 Enoxaparin Sodium 40 mg DAILY SC 03/07/24 10:00 03/09/24 09:46 40 MG Acetaminophen 650 mg Q6HP PRN PO 03/06/24 16:00 03/07/24 06:26 650 MG Morphine Sulfate 2 mg Q4HPRN PRN IV 03/06/24 16:00 Potassium Chloride 40 meq BID PO 03/07/24 22:00 03/09/24 22:35 40 MEQ Venlafaxine HCl 75 mg BID PO 03/07/24 22:00 03/09/24 22:35 75 MG Doxycycline Hyclate 250 ml @ 125 mls/hr Q12H IV 03/09/24 10:00 03/09/24 22:37 125 MLS/HR Laboratory Results Laboratory Tests 03/07/24 05:02 Urinalysis Test 03/08/24 02:30 Urine Color Light-yellow (Yellow) Urine Clarity Clear (Clear) Urine pH 6.0 (5.0-9.0) Urine Specific [place] 1.012 (1.001-1.035) Urine Protein Trace (Negative) H Urine Ketones 2+ (Negative) H Urine Blood Negative /uL (Negative) Urine Nitrite Negative (Negative) Urine Bilirubin Negative (Negative) Urine Urobilinogen Normal mg/dL (Negative) Urine Leukocyte Esterase Negative /uL (Negative) Urine RBC 1 /hpf (0 - 4) Urine WBC 3 /hpf (0 - 5) Urine Squamous Epithelial Cells Few /hpf (<5) Urine Bacteria None seen /hpf (None Seen) Urine Yeast (Budding) Occasional /hpf (None Urine Glucose Normal mg/dL (Normal) Blood Gas Results Test 03/09/24 13:44 Arterial Blood pH 7.534 (7.350-7.450) FiO2 % 21.0 Microbiology Microbiology Date/Time Source Procedure Growth Status 03/08/24 02:30 Voided Urine Urine Culture - Preliminary Resulted 03/07/24 14:00 Blood Blood Culture - Preliminary NO GROWTH AFTER 48 HOURS OF INCUBATION. Resulted Labs and/or images reviewed: Labs reviewed by me, Image(s) reviewed by me Assessment/Plan Assessment/Plan Acute Hypoxic respiratory failure: Oxygen by nasal cannula 4 liters/minute Septic shock secondary to pneumonia with the elevated white count altered mental status and hypoxia Acute community-acquired multifocal pneumonia: Blood cultures negative treated with Rocephin doxycycline albuterol Atrovent Solu-Medrol Acute COPD exacerbation Hypertension DJD History of neck surgery Elevated D-dimer 1.29 PE ruled out Tammy test negative Flu test negative Acute hypokalemia potassium 2.8: Replace potassium Time spent 55 minutes Patient is full code Poor prognosis ABG on room air shows patient qualifies for home oxygen which has been arranged Patient is from [facility] and visiting her daughter Linette [phone] in the [facility] who is at the bedside now. Plan discussed with: Patient My Orders Orders - NOEMI RILEY MD Procedure Category Date Status Time Abg W/ Co-Ox RT 03/09/24 Logged 13:32 * Entry Level Software Developer CONS 03/09/24 Transmitted Consult 15:29 Date of Service: Mar 10, 2024 Billing Provider: NOEMI RILEY MD Common Visit Codes: [id number] INP/OBS CARE([facility]) NOEMI RILEY MD Mar 10, 2024 10:44
[2024-03-10] MEDS ORDERED: DOXY100C79 PO (10:45)
[2024-03-10] MEDS ORDERED: PRED20TA2 PO (10:45)
--- NOTE | 2024-03-10 10:51 | DVHDS2 ---
Discharge Summary Date of Admission Mar 06, 2024 at 15:50 Date of Discharge: Mar 10, 2024 Admitting Diagnosis Shortness of breaths Wounds: None Labs/Diagnostic Data: Laboratory Results Test 03/09/24 13:44 03/08/24 02:30 03/07/24 13:20 03/07/24 05:02 Blood Gas Specimen Type Arterial Blood Gas Sample Site Right radial Blood Gas Patient Temperature 37.0 Arterial Blood Date Drawn [id number] Arterial Blood pH 7.534 (7.350-7.450) Arterial Blood Partial Pressure CO2 28.5 mmHg (32.0-45.0) Arterial Blood Partial Pressure O2 54.6 mmHg (83.0-108.0) Arterial Blood HCO3 23.5 mmol/L (21.0-28.0) Arterial Blood Oxygen Saturation 89.7 % (94.0-98.0) Arterial Blood Base Excess 1.8 mmol/L (-2.0-3.0) Arterial Blood Oxyhemoglobin 89.3 % (94.0-98.0) Arterial Blood Carboxyhemoglobin 0.1 % (0.5-1.5) Arterial Blood Methemoglobin 0.4 % (0.0-1.5) Rober Test Yes Blood Gas Total Hemoglobin 12.80 g/dL (12.0-16.0) Blood Gas Modality Room air FiO2 % 21.0 Blood Gas Critical Value Read Back Yes Blood Gas Notified Whom Dr. mily rodriguez Blood Gas Notified Time [id number] Blood Gas Notified By Urine Color Light-yellow (Yellow) Urine Clarity Clear (Clear) Urine pH 6.0 (5.0-9.0) Urine Specific Mars 1.012 (1.001-1.035) Urine Protein Trace (Negative) Urine Ketones 2+ (Negative) Urine Blood Negative /uL (Negative) Urine Nitrite Negative (Negative) Urine Bilirubin Negative (Negative) Urine Urobilinogen Normal mg/dL (Negative) Urine Leukocyte Esterase Negative /uL (Negative) Urine RBC 1 /hpf (0 - 4) Urine WBC 3 /hpf (0 - 5) Urine Squamous Epithelial Cells Few /hpf (<5) Urine Bacteria None seen /hpf (None Seen) Urine Yeast (Budding) Occasional /hpf (None Urine Glucose Normal mg/dL (Normal) Influenza Type A Antigen Negative (Negative) Influenza Type B Antigen Negative (Negative) SARS-CoV-2 Antigen (Rapid) Negative (NEGATIVE) White Blood Count 10.1 10^3/uL (4.4-10.8) Red Blood Count 4.18 10^6/uL (4.0-5.20) Hemoglobin 12.6 g/dL (12.2-16.2) Hematocrit 36.8 % (36.0-46.0) Mean Corpuscular Volume 87.9 fL (80.0-100.0) Mean Corpuscular Hemoglobin 30.2 pg (28.0-32.0) Mean Corpuscular Hemoglobin Concent 34.4 g/dL (32.0-36.0) Red Cell Distribution Width 12.8 % (11.8-14.3) Platelet Count 201 10^3/uL (140-450) Mean Platelet Volume 7.7 fL (6.9-10.8) Neutrophils (%) (Auto) 86.9 % (37.0-80.0) Lymphocytes (%) (Auto) 7.6 % (10.0-50.0) Monocytes (%) (Auto) 5.3 % (0.0-12.0) Eosinophils (%) (Auto) 0.0 % (0.0-7.0) Basophils (%) (Auto) 0.2 % (0.0-2.0) Neutrophils # (Auto) 8.8 10 ^3/uL (1.6-8.6) Lymphocytes # (Auto) 0.8 10 ^3/uL (0.4-5.4) Monocytes # (Auto) 0.5 10 ^3/uL (0-1.3) Eosinophils # (Auto) 0 10 ^3/uL (0-0.8) Basophils # (Auto) 0 10 ^3/uL (0-0.2) Nucleated Red Blood Cells 0.1 % Sodium Level 140 mmol/L (136-145) Potassium Level 2.7 mmol/L (3.5-5.1) Chloride Level 101 mmol/L (98-107) Carbon Dioxide Level 30 mmol/L (20-31) Anion Gap 9 (5-15) Blood Urea Nitrogen 18 mg/dL (9-23) Creatinine 0.79 mg/dL (0.550-1.02) Glomerular Filtration Rate Calc 82 mL/min (>90) BUN/Creatinine Ratio 22.8 (10.0-20.0) Serum Glucose 108 mg/dL (74-106) Calcium Level 9.0 mg/dL (8.7-10.4) Total Bilirubin 0.6 mg/dL (0.2-1.0) Aspartate Amino Transferase (AST) 27 U/L (13-40) Alanine Aminotransferase (ALT) 14 U/L (7-40) Alkaline Phosphatase 105 U/L (46-116) Total Protein 5.9 g/dL (5.7-8.2) Albumin 3.7 g/dL (3.2-4.8) Test 03/06/24 13:59 03/06/24 10:20 Troponin I High Sensitivity 32 ng/L (</=34) Prothrombin Time 11.6 sec (9.3-11.8) Prothrombin Time INR 1.10 (0.9-1.15) Activated Partial Thromboplast Time 31.3 SEC (24.5-34.5) D-Dimer, Quantitative 1.29 mg/L FEU (0.0-0.49) Magnesium Level 2.1 mg/dL (1.6-2.6) B-Type Natriuretic Peptide 170.50 pg/mL (0-100) Other Laboratory Tests 03/07/24 05:02 Brief Hx & Hospital Course: 72-year-old female with a history of COPD hypertension DJD history of neck surgery chronic respiratory failure not on home oxygen came in complaining of increasing shortness of breaths. Found to be in septic shock secondary to community-acquired pneumonia with the elevated white count and altered mental status. Treated with Rocephin and doxycycline albuterol Atrovent Solu-Medrol blood cultures were negative. Tammy test is negative flu test is negative PE ruled out time of discharge. patient feels better on 3 L of oxygen at the time of discharge. Follow up for home oxygen which has been arranged being discharged home on doxycycline and prednisone tablets. She will continue med neb treatment and other medications and follow up with the primary Dr. Consults/Reason for consult None Operations or Procedures None Condition at Discharge: Fair Final Diagnosis/Problems List Acute Hypoxic respiratory failure: Oxygen by nasal cannula 4 liters/minute Septic shock secondary to pneumonia with the elevated white count altered mental status and hypoxia Acute community-acquired multifocal pneumonia: Blood cultures negative treated with Rocephin doxycycline albuterol Atrovent Solu-Medrol Acute COPD exacerbation Hypertension DJD History of neck surgery Elevated D-dimer 1.29 PE ruled out Tammy test negative Flu test negative Acute hypokalemia potassium 2.8: Replace potassium Discharge Disposition: Home Discharge Instruct/Medications Diet: Cardiac 2g Na,low cholest Activity: Light activity Follow Up/Referral: Continue all previous home medications Follow up with your primary Dr in one week Medications: Doxycycline Diabetes Sent to the pharmacy Reviewed all previous home medications 38 (Time Taken for discharge summary 38 minutes) Discharge Statement: "Patient was advised to return to the ER or call 911 if any headaches, dizziness, shortness of breath, chest pain, abdominal pain, bleeding, fevers, or worsening of medical condition. Patient was counseled about treatment plan, medications, possible side effects, patientverbalized understanding. All questions were answered to the best of my ability. This discharge took greater then 30 minutes in planning, reviewing documentation, counseling the patient, and discussing with other team members." ASSESSMENT ASSESSMENT Assessment Acute Hypoxic respiratory failure: Oxygen by nasal cannula 4 liters/minute Septic shock secondary to pneumonia with the elevated white count altered mental status and hypoxia Acute community-acquired multifocal pneumonia: Blood cultures negative treated with Rocephin doxycycline albuterol Atrovent Solu-Medrol Acute COPD exacerbation Hypertension DJD History of neck surgery Elevated D-dimer 1.29 PE ruled out Tammy test negative Flu test negative Acute hypokalemia potassium 2.8: Replace potassium Date of Service: Mar 10, 2024 Billing Provider: NOEMI RODRIGUEZ MD Common Visit Codes: 95424-ZRN/OBS DISCH DAY >30min NOEMI RODRIGUEZ MD Mar 10, 2024 10:51
--- NOTE | 2024-03-13 12:45 | DVH ---
EXAM: CHEST PORTABLE Indication: cough Technique: Single frontal view of the chest was obtained Comparison: None FINDINGS: Lines and Tubes: None Lungs: Multifocal interstitial opacities. Pleura: No effusion. No pneumothorax. Cardiomediastinal contours: Unremarkable Bones: No acute osseous abnormality. IMPRESSION: Diffuse interstitial opacities suggestive of atypical infection or pulmonary edema. NI DODGE
== END 2024-03-10 14:35 | disposition home or self-care (01) | DRG 871 ==
LOC: ER 08:04 → OVERFLOW 15:50 → WEST WING 23:47
PROVIDERS: ADMIT Family Medicine; ATTEND Family Medicine
DX: A41.50 Gram-negative sepsis, unspecified (principal); G93.41 Metabolic encephalopathy; J15.69 Pneumonia due to other Gram-negative bacteria; R65.21 Severe sepsis with septic shock; J15.9 Unspecified bacterial pneumonia; J96.01 Acute respiratory failure with hypoxia; N17.0 Acute kidney failure with tubular necrosis; J44.1 Chronic obstructive pulmonary disease with (acute) exacerbation; J44.0 Chronic obstructive pulmonary disease with (acute) lower respiratory infection; Z20.822 Contact with and (suspected) exposure to COVID-19; E87.6 Hypokalemia; I10 Essential (primary) hypertension; Z90.49 Acquired absence of other specified parts of digestive tract; Z83.3 Family history of diabetes mellitus
CPT/HCPCS: 36415; 36600; 71045; 71275; 80053; 81001; 82805; 83735; 83880; 84484; 85025; 85379; 85610; 85730; 87040; 87086; 87426; 87804; 93005; 94640; G0378; J2405; J3490; J7060